=== PATIENT | male | born 1970 | race Caucasian/White ===

== ENCOUNTER 2023-10-21 22:11 | Emergency (ER) | payer OTHER, SELFPAY ==
[2023-10-21 22:20] VITALS: BP 130/66; PULSE 79; RESP 14; TEMP 36.7; O2SAT 99
[2023-10-21 22:28] VITALS: BP 130/66; BP 138/90; PULSE 79; PULSE 80; RESP 18; TEMP 36.7; O2SAT 98; O2SAT 99; BMI 24.3
--- NOTE | 2023-10-21 23:10 | ED.BACK ---
HPI - Back Pain/Injury General Chief Complaint: Back Pain/Injury Stated Complaint: back pain Time Seen by Provider: 10/21/23 22:51 Source: patient Mode of arrival: ambulatory Limitations: no limitations History of Present Illness ED Provider: ant ARMENTA Narrative: Patient with frequent back spasm for many years been followed by chiropractor was doing good for last few months started having spasm again for last 5 days no recent injury no paresthesia no bladder or bowel involvement Related Data Previous Rx's ?Medication ?Instructions ?Recorded cyclobenzaprine 10 mg tablet 10 mg PO Q8H #20 tabs 10/22/23 diazepam 5 mg tablet (Valium) 5 mg PO BID PRN muscle spasm #20 10/22/23 tabs tramadol 50 mg tablet 50 mg PO Q6H PRN pain #20 tabs 10/22/23 Allergies Allergy/AdvReac Type Severity Reaction Status Date / Time No Known Allergies Allergy Verified 10/21/23 22:32 Review of Systems Review of Systems: Yes all other systems are reviewed and are negative [facility] Social History Social History Advance Directives: No Advance Directives Information Provided: Yes Do you have a plan to hurt others: No Plan Physical Exam Vital Signs: Vital Signs: Last Vital Signs Temp 98.0 F 10/21/23 22:28 Pulse 70 10/22/23 00:05 Resp 16 10/22/23 00:05 BP 133/84 10/22/23 00:05 Pulse Ox 97 10/22/23 00:05 O2 Del Method Room Air 10/22/23 00:05 BMI result Body Mass Index 24.3 Appearance: Alert. Oriented X3. No acute distress. ENT: Pharynx normal. Oral Mucosa moist Neck: Normal inspection. Neck supple. CVS: Normal heart rate and rhythm. Pulses normal. Respiratory: No respiratory distress. Equal air entry bilateral, no wheezing/rales/rhonchi Abdomen: Soft and nontender. Bowel sounds are present, no mass palpable, no CVA tenderness Back: No midline tenderness bilateral lumbar paraspinal spasm tenderness Skin: Skin warm and dry. Normal skin color. Normal skin turgor. Extremities: No lower extremity edema. No calf tenderness Neuro: Oriented X 3. No motor deficit. No sensory deficit.No cerebellar signs , cranial nerves II-XII intact Medications Administered Discontinued Medications Generic Name Dose Route Start Last Admin Trade Name Bebeto PRN Reason Stop Dose Admin Cyclobenzaprine HCl 10 mg 10/21/23 23:15 10/21/23 23:31 Cyclobenzaprine Hcl 10 Mg Tablet PO 10/21/23 23:16 10 mg ONCE ONE Administration Dexamethasone Sodium Phosphate 10 mg 10/21/23 23:15 10/21/23 23:32 Dexamethasone Sod Phosphate 10 Mg/Ml Vial IVPUSH 10/21/23 23:16 10 mg ONCE ONE Administration Ketorolac Tromethamine 30 mg 10/21/23 23:15 10/21/23 23:32 Ketorolac Tromethamine 30 Mg/Ml Vial IVPUSH 10/21/23 23:16 30 mg ONCE ONE Administration Morphine Sulfate 4 mg 10/22/23 00:02 10/22/23 00:27 Morphine Sulfate 4 Mg/Ml Cartridge IVPUSH 10/22/23 00:03 4 mg ONCE ONE Administration Protocol Medical Decision Making Medical Decision Making MDM Narrative: Patient with chronic low back spasm for years been followed by PCP in chiropractor no recent injury comes here with increased muscle spasm no neuro deficit improved after IV Toradol and Flexeril and Decadron Differential Diagnosis Differential Diagnoses: The differential diagnosis associated with the presentation includes Muscle spasms/spinal injuries Discharge Plan Discharge Clinical Impression: Back muscle spasm Patient Disposition: Home, Self-Care Instructions: Muscle Spasm (ED) Additional Instructions: Take medication as prescribed for muscle relaxation and pain Follow up with medical language specialist Prescriptions: New diazepam [Valium] 5 mg tablet 5 mg PO BID PRN (Reason: muscle spasm) Qty: 20 0RF cyclobenzaprine 10 mg tablet 10 mg PO Q8H Qty: 20 0RF tramadol 50 mg tablet 50 mg PO Q6H PRN (Reason: pain) Qty: 20 0RF Referrals: Chapito Sam MD, PhD [Physician] - 2 weeks Print Language: Divehi
--- NOTE | 2023-10-21 23:13 | PC.NURSE ---
Received report from WILLIAMS Gant. PT resting in bed, at bedside. PT reports 101/10, no relief from fentanyl 75mcg administered by ems. Notified provider who is now in room assessing pt
--- OUTSIDE RECORDS SUMMARY | 2023-10-21 23:29 | XMS_ITS | Continuity of Care Document ---
Author Organization [facility] Address [address] [place] [address]- Care Team Providers Care Lead Rider Name Role Phone Edwin Mcclellan MD Primary Care Physician Encounter [facility] [place] Date(s): 11/08/22 - 12/08/22 [facility] [address] [place], [place] [address] Allergies, Adverse Reactions, Alerts No Known Allergies Immunizations Given and Recorded Vaccine Date Status Refusal Reason influenza virus vaccine, inactivated 03/14/21 Josiah rded influenza virus vaccine, inactivated 1 01/18/18 Re corded influenza virus vaccine, inactivated 2 01/19/17 Re corded influenza virus vaccine, inactivated 3 01/24/15 Re corded influenza virus vaccine, inactivated 4 02/23/14 Re corded influenza virus vaccine, inactivated 5 01/12/14 Re corded influenza virus vaccine, inactivated 6 02/21/13 Gi guerrero SARS-CoV-2 (COVID-19) mRNA BNT-162b2 vac 08/21/20 Recorded Influenza Virus Vaccine (oldterm) 03/14/19 Recorde d tetanus/diphtheria/pertussis, acel(Tdap) 07/01/10 Given 1Result Comment: [01/19/2018] given at [facility] 2Location History: [place] [place] [place] 3[facility] 4Location History: WORK 5Result Comment: [01/21/2014] done [facility] form received 6Admin Note: done @ [facility] Medications lisinopril 10 mg oral tablet 10 mg, 1, tablet, By Mouth, Daily, # 90 tablet, Refills 3, Tot. Refills 3, Maintenance, 11/08/22 17:03:00 EDT, Route to [facility]acy Electronically, [id number], Partial fill upon patient request if the prescription is for a schedule II opioid drug... Start Date: 11/08/22 Stop Date: 11/03/23 Status: Ordered Problem List Condition Confirmation Course Effective Dates Status Health St [facility] Informant Hypertension Confirmed Active Social History Social History Type Response Smoking Status Never smoker entered on: 04/10/14 Sex Patient Care team information Care Team Personnel Name: Edwin Mcclellan MD Position: S Physician - Primary Care Member Role: PCP Address: Address: [address] [place] [address] Adult & Pediatric Medicine [address] Care Team Related Persons Name: AIYANA PICHARDO Address: home [address] [place] [address] Name: RONNELL PICHARDO Address: home [address] [place] [address] Name: ALON PICHARDO Address: [address] [place] [address]
--- OUTSIDE RECORDS SUMMARY | 2023-10-21 23:29 | XMS_ITS | Continuity of Care Document ---
Author Organization [facility] Address [address] [place] [address]- Care Team Providers Care Contracts Director Name Role Phone Edwin Mcclellan MD Primary Care Physician [place] [facility] [place]22 [facility] [address] [place], [place] [address] Allergies, Adverse Reactions, Alerts No Known Allergies [...] History: WORK 5Result Comment: [01/21/2014] done at [facility] form received 6Admin Note: [facility] Medications lisinopril 10 mg oral tablet 10 mg, 1, tablet, By Mouth, Daily, # 90 tablet, Refills 3, Tot. Refills 3, Maintenance, 11/08/22 17:03:00 EDT, Route to Pharmacy Electronically, [facility]/pharmacy #[id number], Partial fill upon patient request if the [...] Primary Care Member Role: PCP Address: Address: [address] [place] [address] Adult & Pediatric Medicine [address] Care Team Related Persons Name: AIYANA PICHARDO Address: home [address] [place] [address] Name: RONNELL PICHARDO Address: home [address] [place] [address] Name: ALON PICHARDO Address: [address] [address]
--- OUTSIDE RECORDS SUMMARY | 2023-10-21 23:30 | XMS_ITS | Continuity of Care Document ---
Author Organization [facility] Address [address] [place] [address]- Care Team Providers Care Rivet Tester Name Role Phone Edwin Mcclellan MD Primary Care Physician [place] [facility] [place]s): 09/06/22 - 09/13/22 [facility] [address] [place], [place] [address] Encounter Diagnosis Hypertension(Discharge Diagnosis) - 09/06/22 Attending Physician: Edwin Mcclellan MD Allergies, Adverse Reactions, Alerts No Known Allergies [...] mg, 1, tablet, By Mouth, Daily, # 30 tablet, Refills 11, Tot. Refills 11, Maintenance, 10/15/21 16:30:00 EDT, Route to Pharmacy Electronically, [facility], Partial fill upon patient request if the prescription is for a schedule I... Start Date: 10/15/21 Status: Ordered Problem List Condition Confirmation Course Effective Dates Status Health St atus Informant Hypertension Confirmed Active Diagnosis Diagnosis Type Effective Dates Health Status inical Service Informant Hypertension Discharge Diagnosis 09/06/22 Vital Signs Most recent to oldest [Reference Range]: 1 Height 170.00 cm (09/06/22 8:33 AM) Weight 72.1 kg (09/06/22 8:33 AM) Oxygen Saturation [94-100 %] 99 % (09/06/22 8:33 AM) Pulse Rate [55-90 bpm] 67 bpm (09/06/22 8:33 AM) Body Mass Index [18.5-24.99 kg/m2] 24.95 kg/m2 (09/06/22 8:33 AM) Blood Pressure [90-138/55-84 mm Hg] 118/ 66mm Hg (09/06/22 8:33 AM) Blood pressure sites Arm, left (09/06/22 8:33 AM) Weight Obtained Via Standing scale (09/06/22 8:33 AM) Social History Social History Type Response Smoking Status Never smoker entered on: 04/10/14 Sex Note * Madiha Roth: PERFORM, SIGN, VERIFY Event Display: Patient Education/Instruction Authored Date: [id number] [facility] Clinical Summary Name NASIMA PICHARDO Age 52 Years 1970 PCP [facility]llan [phone] Date 09/06/2022 08:26:00 Patient Instructions continue lisinopril, diet, and exercise; check lab today; schedule screening colonoscopy; shingrix vaccine at pharmacy; call if any question or problem Additional Instructions: Scheduled Appointments?? Future Appointments ?No Future Appointments Scheduled Follow-Up Instructions ?? With: Address: When: [facility] [place] [address] Diagnosis Encounter for general adult medical examination without abnormal findings Medications: Please continue your medications until treatment is completed or stopped by your provider. Discuss any questions related to medications with your provider. Medications to Continue with No Changes These medications were not printed or sent to your pharmacy Lisinopril (lisinopril 10 mg oral tablet) 1 tab(s) Oral Daily. Refills: 11. Next Dose: Allergy Info:?? NKA Medications Given This Visit Future Orders ?No future orders Vital Signs Height 170.00 cm Weight 72.1 kg BMI 24.95 kg/m2 Blood Pressure 118 mm Hg/66 mm Hg Temperature Pulse Rate 67 bpm Respiratory Rate 02 Sat Mode of Delivery 99 %/ You can now view a summary of your hospital visit from the comfort of your home through a free online portal called [employer]. [employer] is a website that allows you to securely view your medical information including discharge summary, medications and follow-up visits. ??You can alsosend a secure electronic message to your doctor???s office to request appointments, renew medications or just ask a question. You can enroll at [email or web address] or register during your next office visit. Disclaimer:?? The information provided is of a general nature and is intended to be used in conjunction with the recommendations and advice of your health care practitioner. ??Every effort has been made to ensure that the information provided is accurate and complete at the time it is provided to you however, as your needs change, or, as new ??information becomes available, different or additional instructions may be required. If you have questions, please consult with your primary care provider or pharmacist, as appropriate. ??This information is not intended to serve as substitution for assessment and evaluation by a qualified health care provider. If you do not have a primary care provider, you may find a [facility] provider by calling [facility] [employer] Link at [phone]. For information about the plan of care including goals and instructions for your diagnosis, please see the patient education orders section of this document. Patient Education Materials?? The content of this educational material or handout may have been modified, supplemented, or adapted from its original content and format to support your individualized medical care. Patient Care team information Care Team Personnel Name: Edwin Mcclellan MD Position: S Primary Care Physician Member Role: PCP Address: Address: [address] [place] [address] Adult [place] [address]- Care Team Related Persons Name: AIYANA PICHARDO Address: home [address] [place] [address] Name: RONNELL PICHARDO Address: [address] [place] [address] Name: ALON PICHARDO Address: [address] [place] [address]
--- OUTSIDE RECORDS SUMMARY | 2023-10-21 23:30 | XMS_ITS | Continuity of Care Document ---
Author Organization [facility] Address [address] [place] [address]- Care Team Providers Care Body Work Auto Trimmer Name Role Phone Edwin Mcclellan MD Primary Care Physician [phone] Encounter [facility] [place] Date(s): 06/16/21 - 06/23/21 [facility] [address] [place], [place] [address] Attending Physician: Edwin Mcclellan MD Allergies, Adverse [...] received 6Admin Note: done @ [facility] Vital Signs Most recent to oldest [Reference Range]: 1 2 3 Height 170.00 cm (06/16/21 3:37 PM) 170.00 cm (06/16/21 3:02 PM) 170.00 cm (06/16/21 2:58 PM) Weight 74.0 kg (06/16/21 2:58 PM) Oxygen Saturation [94-100 %] 99 % (06/16/21 2:58 PM) Pulse Rate [55-90 bpm] 68 bpm (06/16/21 3:37 PM) 84 bpm (06/16/21 2:58 PM) Body Mass Index [18.5-24.99] 25.61 *H* (06/16/21 2:58 PM) Blood Pressure [90-138/55-84 mm Hg] 144/82mm Hg *H* (06/16/21 3:37 PM) 150/88mm Hg *H* (06/16/21 3:02 PM) 142/88mm Hg *H* (06/16/21 2:58 PM) Blood pressure sites Arm, left (06/16/21 3:37 PM) Arm, right (06/16/21 3:02 PM) Arm, left (06/16/21 2:58 PM) Social History Social History Type Response Smoking Status Never smoker entered on: 04/10/14 Sex
--- OUTSIDE RECORDS SUMMARY | 2023-10-21 23:30 | XMS_ITS | Continuity of Care Document ---
Author Organization [facility] Address [address] [place] [address]- Care Team Providers Care Supervisor Sterile Processing Name Role Phone Edwin Mcclellan MD Primary Care Physician [phone] Encounter [facility] [place] Date(s): 10/15/21 - 11/14/21 [facility] [address] [place], [place] [address] Allergies, Adverse Reactions, Alerts No Known Allergies [...] Date: 10/15/21 Status: Ordered Problem List Condition Effective Dates Status Health Status Inform ant Hypertension(Confirmed) Active Social History Social History Type Response Smoking Status Never smoker entered on: 04/10/14 Sex
--- OUTSIDE RECORDS SUMMARY | 2023-10-21 23:30 | XMS_ITS | Continuity of Care Document ---
Author Organization [facility] Address [address] [place] [address]- Care Team Providers Care Strike Plate Attacher Name Role Phone Edwin Mcclellan MD Primary Care Physician [phone] [place] [facility] [place] Date(s): 08/28/21 - 09/04/21 [facility] [address] [place], [place] [address] Encounter Diagnosis Hypertension(Discharge Diagnosis) - 08/28/21 Attending Physician: Edwin Mcclellan MD Allergies, Adverse [...] tablet, Refills 11, Tot. Refills 11, Maintenance, 08/28/21 14:23:00 EDT, Route to Pharmacy Electronically, [facility]/pharmacy #[id number], Partial fill upon patient request if the prescription is for a schedule II opioid . Start Date: 08/28/21 Status: Ordered Problem List Condition Effective Dates Status Health Status Inform ant Hypertension(Confirmed) Active Diagnosis Diagnosis Type Effective Dates Health Status Cl inical Service Informant Hypertension Discharge Diagnosis 08/28/21 Vital Signs Most recent to oldest [Reference Range]: 1 2 Height 170.00 cm (08/28/21 2:11 PM) 170.00 cm (08/28/21 2:08 PM) Weight 74.4 kg (08/28/21 2:08 PM) Oxygen Saturation [94-100 %] 99 % (08/28/21 2:08 PM) Pulse Rate [55-90 bpm] 72 bpm (08/28/21 2:08 PM) Body Mass Index [18.5-24.99] 25.74 *H* (08/28/21 2:08 PM) Blood Pressure [90-138/55-84 mm Hg] 140/ 88mm Hg *H* (08/28/21 2:11 PM) 140/88mm Hg *H* (08/28/21 2:08 PM) Blood pressure sites Arm, right (08/28/21 2:11 PM) Arm, left (08/28/21 2:08 PM) Social History Social History Type Response Smoking Status Never smoker entered on: 04/10/14 Sex
--- OUTSIDE RECORDS SUMMARY | 2023-10-21 23:30 | XMS_ITS | Continuity of Care Document ---
Author Organization [facility] Address [address] [place] [address]- Care Team Providers Care Prosthetic Lab Technician Name Role Phone Edwin Mcclellan MD Primary Care Physician [place] [facility] [place]22 [facility] [address] [place], [place] [address] Allergies, Adverse Reactions, Alerts No Known [...] History: WORK 5Result Comment: [01/21/2014] done at [facility] form received 6Admin Note: done @ [facility] Medications lisinopril 10 mg oral tablet 10 mg, 1, tablet, By Mouth, Daily, # 90 tablet, Refills 3, Tot. Refills 3, Maintenance, 11/08/22 17:03:00 EDT, Route to Pharmacy Electronically, [facility]/pharmacy #[id number], Partial fill upon patient request if the [...] Primary Care Member Role: PCP Address: Address: [address] [place] [address] Adult & Pediatric Medicine [address] Care Team Related Persons Name: AIYANA PICHARDO Address: home [address] [place] [address] Name: RONNELL PICHARDO Address: home [address] [place] [address] Name: ALON PICHARDO Address: [address] [address]
--- OUTSIDE RECORDS SUMMARY | 2023-10-21 23:30 | XMS_ITS | Continuity of Care Document ---
Author Organization [facility] Address [address] [place] [address]- Care Team Providers Care Collaborating Supervising Physician Name Role Phone Edwin Mcclellan MD Primary Care Physician [phone] [place] [facility] [place] 12/02/22 [facility] [address] [place], [place] [address] Allergies, Adverse Reactions, Alerts No Known [...] 17:03:00 EDT, [id number], Partial fill upon patient request if the [...] Primary Care Member Role: PCP Address: Address: [address] [place] [address] Adult & Pediatric Medicine [address] Care Team Related Persons Name: AIYANA PICHARDO Address: home [address] [place] [address] Name: RONNELL PICHARDO Address: home [address] [place] [address] Name: ALON PICHARDO Address: [address] [place] [address]
--- OUTSIDE RECORDS SUMMARY | 2023-10-21 23:30 | XMS_ITS | Continuity of Care Document ---
Author Organization [facility] Address [address] [place] [address]- Care Team Providers Care Clinical Science Consultant Name Role Phone Edwin Mcclellan MD Primary Care Physician [place] [facility] [place](s): 09/13/23 - 10/13/23 [facility] [address] [place], [place] [address] Allergies, Adverse Reactions, Alerts No Known [...] 07/01/10 Given 1Result Comment: [01/19/2018] given at [facility] 2Location History: [facility] 3Location [facility] 4Location History: WORK 5Result Comment: [01/21/2014] done at [facility] form received 6Admin Note: [facility] Medications lisinopril 10 mg oral tablet 10 mg, 1, tablet, By Mouth, Daily, # 90 tablet, Refills 3, Tot. Refills 3, Maintenance, 11/08/22 17:03:00 EDT, Route to Pharmacy Electronically, [facility]/pharmacy #[id number], Partial fill upon patient request if the prescription is for a schedule II opioid drug... Start Date: 11/08/22 Stop Date: 11/03/23 Status: Ordered metroNIDAZOLE 0.75% topical gel 1 application, Topically, 2 times a day, PRN facial rash, # 45 Gm, 1 Refills, Maintenance, 249:10:00 EDT, [id number], Partial fill upon patient request if the prescription is for a schedule II opioid drug., 1 application Topically... Start Date: 09/12/23 Status: Ordered Problem List Condition Confirmation Course Effective Dates Status Health St [facility] Informant Hypertension Confirmed Active Social History Social History Type Response Smoking Status Never smoker entered on: 04/10/14 Sex Patient Care team information Care Team Personnel Name: Edwin Mcclellan MD Position: [facility] Physician - Primary Care Member Role: PCP Address: Address: [address] [place] [address] Adult & [place] [address]- Care Team Related Persons Name: AIYANA PICHARDO Address: home [address] [place] [address] Name: RONNELL PICHARDO Address: home [address] [place] [address] Name: ALON PICHARDO Address: home [address] [place] [address]
--- OUTSIDE RECORDS SUMMARY | 2023-10-21 23:30 | XMS_ITS | Continuity of Care Document ---
Author Organization [facility] Address [address] [place] [address]- Care Team Providers Care Tower Cleaner Name Role Phone Edwin Mcclellan MD Primary Care Physician [phone] [place] [facility] [place]s): 06/10/21 - 07/10/21 [facility] [address] [place], [place] [address] Allergies, Adverse Reactions, Alerts No Known [...] received 6Admin Note: done @ [facility] Social History Social History Type Response Smoking Status Never smoker entered on: 04/10/14 Sex
--- OUTSIDE RECORDS SUMMARY | 2023-10-21 23:30 | XMS_ITS | Continuity of Care Document ---
Author Organization 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 [address] [place], [place] [address] Encounter Diagnosis Hypertension(Discharge Diagnosis) - 09/12/23 Right shoulder pain(Discharge Diagnosis) - 09/12/23 Skin disorder(Discharge Diagnosis) - 09/12/23 Attending Physician: Edwin Mcclellan MD Allergies, Adverse [...] 11/08/22 17:03:00 EDT, Route to Pharmacy Electronically, [facility]/pharmacy #[id number], Partial fill upon patient request if the prescription is for a schedule II opioid drug... Start Date: 11/08/22 Stop Date: 11/03/23 Status: Ordered metroNIDAZOLE 0.75% topical gel 1 application, Topically, 2 times a day, PRN facial rash, # 45 Gm, 1 Refills, Maintenance, 249:10:00 EDT, Gel, [facility]/pharmacy #[id number], Partial fill upon patient request if the prescription is for a schedule II opioid drug., 1 application Topically... Start Date: 09/12/23 Status: Ordered Problem List Condition Confirmation Course Effective Dates Status Health St [facility] Informant Hypertension Confirmed Active Diagnosis Diagnosis Type Effective Dates Health Status Clinical Service Informant Hypertension Discharge Diagnosis 09/12/23 Right shoulder pain Discharge Diagnosis 09/12/23 Skin disorder Discharge Diagnosis 09/12/23 Vital Signs Most recent to oldest [Reference Range]: 1 Height 170.00 cm (09/12/23 8:46 AM) Weight 73 kg (09/12/23 8:46 AM) Oxygen Saturation [94-100 %] 99 % (09/12/23 8:46 AM) Pulse Rate [55-90 bpm] 66 bpm (09/12/23 8:46 AM) Body Mass Index [18.5-24.99 kg/m2] 25.26 kg/m2 *H* (09/12/23 8:46 AM) Blood Pressure [90-138/55-84 mm Hg] 128/ 66mm Hg (09/12/23 8:46 AM) Respiratory Rate [16-30 br/min] 18 br/mi n (09/12/23 8:46 AM) Mode of Delivery (Oxygen) Room air (09/12/23 8:46 AM) Blood pressure sites Arm, left (09/12/23 8:46 AM) Weight Obtained Via Standing scale (09/12/23 8:46 AM) Social History Social History Type Response Smoking Status Never smoker entered on: 04/10/14 Sex Note * Carolyn Norwood: PERFORM Event Display: Patient Education/Instruction Authored Date: [id number] Ambulatory Adult Visit Summary [facility] [address] [place] [id number] Name: NASIMA PICHARDO : 1970?? Visit: 09/12/2023 08:25?? Ambulatory Visit Instructions ?? Your Care Team Primary Care Provider Edwin Mcclellan MD? This Visit Provider Edwin Mcclellan MD Your Diagnosis Routine general medical examination at health care facility Low back pain Vitals Signs Pulse Rate: 66 bpm Height: 170 cm Respiratory Rate: 18 br/min Weight: 73 kg Systolic Blood Pressure: 128 mm Hg Body Mass Index:??25.26 kg/m2??High Diastolic Blood Pressure: 66 mm Hg Body surface area: 1.86 Oxygen Saturation: 99 % ?? What to do next Instructions From Your Provider continue current medication, diet, and low impact exercise; check lab today; lower back xray at??[address] [place] [address], schedule p.t. consult regarding your lower back and shoulder symptoms; schedule screening colonoscopy; try metronidazole gel twice daily on facial rash; call if any question or problem Follow-Up Appointments Follow Up with??Edwin Mcclellan MD When:??09/21/2024 08:40 AM EDT Where: [facility] [place] [address]- Follow Up with??[facility] Gastroenterology Where: [address] [place] [phone] Future Orders XR Lumbar Spine 2 or 3 Views, Routine, Reason for Exam: Pain, Once, *Est. 09/12/23 CBC w/ Differential - Routine, Once, 09/12/23 9:09:00 EDT, Future Order, [facility], Blood?? Comprehensive Metabolic Panel - Routine, Once, 09/12/23 9:09:00 EDT, Future Order, [facility], Blood?? Cholesterol Total - Routine, Once, 09/12/23 9:09:00 EDT, Future Order, [facility], Blood?? Direct LDL - Routine, Once, 09/12/23 9:09:00 EDT, Future Order, [facility], Blood?? PSA Screen - Routine, Once, 09/12/23 9:09:00 EDT, Future Order, [facility], Blood?? Medications The list below reflects the information in our records and provided by you today along with any changes made during this visit. Please continue your medications until treatment is completed or stopped by your provider. If this is different from the information you have or there are other questions,please contact the prescribing provider. What How Much When Instructions New Metronidazole Topical (metroNIDAZOLE 0.75% topical gel) 1 monty Topically Twice a day as needed for facial rash Refills: 1 Pickup at [facility]/pharmacy #[id number] Unchanged Lisinopril (lisinopril 10 mg oral tablet) 1 tab(s) Oral Daily Duration: 90 Days Pharmacy Information [facility]/pharmacy #[id number]: [address], [place] [id number] [phone] Test Performed Below is a partial list of the tests performed during your Visit. You may have had other tests and procedures not included in this list. Please discuss all test results with your provider. CBC w/ Differential?-- Results Pending -- Cholesterol Total?-- Results Pending -- Comprehensive Metabolic Panel?-- Results Pending -- Direct LDL?-- Results Pending -- PSA Screen?-- Results Pending -- You will be contacted within 72 hours with your results. Medications and Immunizations Administered Medications Given During Visit No medications given during this visit.?? Allergies (NKA means No Known Allergies) NKA Common Emergency Awareness Tips IS IT A STROKE? Act FAST and Check for these signs: FACE Does the face look uneven? ARM Does one arm drift down? SPEECH Does their speech sound strange? TIME Call at any sign of stroke ?? Heart Attack Signs Chest discomfort: Most heart attacks involve discomfort in the center of the chest and lasts more than a few minutes, or goes away and comes back. It can feel like uncomfortable pressure, squeezing, fullness or pain. Discomfort in upper body: Symptoms can include pain or discomfort in one or both arms, back, neck, jaw or stomach. Shortness of breath: With or without discomfort. Other signs: Breaking out in a cold sweat, nausea, or lightheaded. Remember, MINUTES DO MATTER. If you experience any of these heart attack warning signs, call to get immediate medical attention! ?? Smoking can increase your chances of developing chronic health problems and can cause harmful effects to other family members in your house. If you smoke, you are strongly encouraged to quit. Please call [employer] at [phone] or [phone]-[employer] ([phone]) or log in to [email or web address] for referrals to smoking cessation programs. ?? The National Suicide Prevention Hotline is available 15/11 if you or someone you know needs to find a reason to keep living. By calling 1-896-321-[employer] (6351) you'll be connected to a skilled, trained counselor at a crisis center in your area. [employer] You can view and manage your care through the patient portal or by using a health care mnoty of your choosing. [employer] is a website that allows you to securely view your medical information including your hospital discharge summary, office visit summaries, medications and follow-up visits. You can also request appointments, renew medications, and request access to your medical information using a health care monty of your choosing, or just ask a question. You can enroll at [email or web address] or register during your next office visit. [facility], in keeping with [facility] guidance, no longer requires face masks for staff, patientsor visitors in most situations. Similiar to time spent indoors at other locations, there is the chance that you were exposed to repiratory viruses during your time with us (such as flu or COVID-19). If you develop symptoms concerning for a viral respiratory infection, please seek testing (and treatment if indicated) from your medical provider or home test kit. ?? Disclaimer: The information provided is of a general nature and is intended to be used in conjunction with the recommendations and advice of your health care practitioner. Every effort has been made to ensure that the information provided is accurate and complete at the time it is provided to you however, as your needs change, or, as new information becomes available, different or additional instructions may be required. ?? If you have questions, please consult with your primary care provider or pharmacist, as appropriate. This information is not intended to serve as substitution for assessment and evaluation by a qualified health care provider. If you do not have a primary care provider, you may find a [facility] provider by calling [employer] at [phone]. Patient Care team information Care Team Personnel Name: Edwin Mcclellan MD Position: [facility] Physician - Primary Care Member Role: PCP Address: Address: [address] [place] [address] Adult & Pediatric Medicine [place], [place] [address] Care Team Related Persons Name: AIYANA PICHARDO Address: [address] [place] [address] Name: RONNELL PICHARDO Address: [address] [place] [address] Name: ALON PICHARDO Address: [address] [place] [address]
[2023-10-21] MEDS: Cyclobenzaprine HCl 10 MG TABLET PO (23:31)
[2023-10-21] MEDS: dexAMETHasone sod phosphate 10 MG/ML VIAL IVPUSH (23:32)
[2023-10-21] MEDS: Ketorolac Tromethamine 30 MG/ML VIAL IVPUSH (23:32)
[2023-10-22 00:05] VITALS: BP 133/84; PULSE 70; RESP 16; O2SAT 97
[2023-10-22] MEDS: Morphine Sulfate 4 MG/ML CARTRIDGE IVPUSH (00:27)
[2023-10-22] MEDS: diazePAM 5 MG TABLET 10 MG PO (01:55)
[2023-10-22 02:04] VITALS: BP 133/84; PULSE 70; RESP 16; TEMP -17.7; TEMP 0; O2SAT 97
== END 2023-10-22 02:04 | disposition home or self-care (01) ==
PROVIDERS: Emergency Provider Internal Medicine; PCP Internal Medicine
DX: M62.830 Muscle spasm of back (principal)
CPT/HCPCS: 96374; 96375; 96376; 99283; 99284; J1100; J1885; J2270